=== PATIENT | female | born 1980 | race Caucasian/White ===

== ENCOUNTER 2017-10-05 07:44 | Day surgery (SDC) | payer OTHER ==
[~2017-10-05 07:44] MED LIST: AVAPRO300 MG PO
[2017-10-05] MEDS ORDERED: PERCOCET 5-3251 EACH PO (12:52)
[2017-10-05] MEDS ORDERED: RECTICARE30 GM TOP (12:52)
== END 2017-10-05 16:07 | disposition home or self-care (01) ==
LOC: CIR.AMB 07:44
DX: K64.8 Other hemorrhoids (principal)